=== PATIENT | male | born 1950 | race African-American/Black ===

== ENCOUNTER → 2016-11-14 | Outpatient (CLI) | payer MEDICARE ==
--- NOTE | 2016-11-14 13:36 | RAD ---
Abdomen, 2 views, 11/14/2016: History: Abdominal discomfort, constipation There is a moderate amount of stool scattered throughout the colon. The abdominal gas pattern is otherwise unremarkable. No free air is seen in the abdomen. There is no evidence of organomegaly. Lower pelvic calcifications are compatible with phleboliths. There are mild scattered degenerative changes in the spine. IMPRESSION: Increased stool throughout the colon compatible with the history of constipation.
== END | disposition home or self-care (01) ==
LOC: DXRADRC 12:10
PROVIDERS: ATTEND Physician Assistant
DX: K59.09 Other constipation (principal)
CPT/HCPCS: 74020

== ENCOUNTER → 2020-10-05 | Outpatient (CLI) | payer MEDICARE ==
[~2020-10-05] MED LIST: IOHEXOL 240 MG/ML 50ML VIAL. ONE; IOHEXOL 240 MG/ML 50ML VIAL. PO ONE; IOHEXOL 300 MG/ML 75 ML VIAL. IV ONE
[2020-10-05 10:26] LABS: CREATININE 1.3 mg/dL (0.7-1.3); GFR 65.8
--- NOTE | 2020-10-05 13:53 | RAD ---
PQRS Compliance Statement: One or more of the following individualized dose reduction techniques were utilized for this examinat ion: 1. Automated exposure control 2. Adjustment of the mA and/or kV according to patient size 3. Use of iterative reconstruction technique CT abdomen/pelvis with contrast 10/05/2020 9:56 AM INDICATION: Left flank pain with intermittent lumps on the left side. Loss of appetite. COMPARISON: None available TECHNIQUE: Multiple axial CT images of the abdomen and pelvis were obtained after the intravenous adm inistration of nonionic contrast. Coronal and sagittal reformats are provided. FINDINGS: Visualized portions of the lung bases are clear. Heart size is within normal limits. No suspicious hepatic masses are identified. Liver is homogeneous in enhancement. Spleen, bilateral a drenal glands, and pancreas are normal in appearance. Gallbladder is present without adjacent inflamm atory changes. The abdominal aorta is normal in course and caliber. There are no pathologically enlarged lymph nodes in the abdomen and pelvis. There is no abdominal free fluid. There is no free intraperitoneal air. There is a simple cyst in inferior pole left kidney measuring 12 mm. The kidneys enhance symmetricall y. There is no suspicious renal mass. There is no hydronephrosis. There are no suspected calculi with in the kidneys, ureters or urinary bladder. Urinary bladder is within normal limits given degree of d istention. Prostate and seminal vesicles are normal in appearance. Mild eccentric wall thickening involving the mid right colon (series 2, image 50) may be secondary to underdistention. No bowel obstruction or inflammation. Appendix is normal. Small bowel loops are nor mal in caliber with normal fold pattern. Stomach is normal in appearance. No suspicious osseous normality. IMPRESSION: 1. Mild eccentric wall thickening involving the mid right colon may be secondary to underdistention. However, neoplastic etiology remains a differential consideration and correlation with most recent co lonoscopy could be of benefit. 2. No bowel obstruction or inflammation. 3. 12 mm simple cyst in inferior pole left kidney. Electronically signed by: Kristin Pelayo MD (10/05/2020 1:51 PM) [id number]
== END ==
LOC: CT 09:30
PROVIDERS: ATTEND Internal Medicine Gastroenterology
DX: N28.1 Cyst of kidney, acquired (principal)
CPT/HCPCS: 36415; 74177; 82565; 84520; Q9966; Q9967

== ENCOUNTER → 2021-02-21 | Outpatient (CLI) | payer MEDICARE ==
--- NOTE | 2021-02-21 16:46 | RAD ---
XR CHEST 2V CLINICAL INDICATIONS: Reason: SHORTNESS OF BREATH, RESPIRATORY INFECTION X 1 WEEK / Spl. Instructions : / History: COMPARISON: October 08, 2013. Findings: No acute lung infiltrate or pleural effusion or pulmonary edema or lung mass or pneumothora x is seen. The heart size, pulmonary vasculature, mediastinum and both zechariah are unremarkable. The os seous structures appear intact. IMPRESSION: No acute radiographic abnormality is seen. Electronically signed by: Yeyo Bliss MD (02/21/2021 4:43 PM) [id number]
== END ==
LOC: RAD 15:54
PROVIDERS: ATTEND Nurse Practitioner Family
DX: J06.9 Acute upper respiratory infection, unspecified (principal); R06.02 Shortness of breath
CPT/HCPCS: 71046